=== PATIENT | female | born 1985 | race Caucasian/White ===

== ENCOUNTER → 2016-06-26 | Outpatient (CLI) | payer BC ==
[~2016-06-26] MED LIST: ETON1VAG VG
== END | disposition home or self-care (01) ==
LOC: STAR 13:45
PROVIDERS: ATTEND Obstetrics & Gynecology Female Pelvic Medicine and Reconstructive Surgery
DX: Z01.818 Encounter for other preprocedural examination (principal); R10.2 Pelvic and perineal pain
CPT/HCPCS: 36415; 84703; 85025

== ENCOUNTER 2016-07-05 08:26 | Day surgery (SDC) | payer BC, OTHER ==
[~2016-07-05] VITALS: Ht 167.6 cm; Wt 79.0 kg
[~2016-07-05 08:26] MED LIST changes: +BUPIVACAINE/PF-EPI 0.25% 1:200K ONE
[2016-07-05 09:20] VITALS: BP 127/81
[2016-07-05] MEDS ORDERED: LACTATED RINGERS 1,000 ML IV SCH ×2 (09:23→11:39)
[2016-07-05 09:35] LABS: HCG UR OBC PASS
[2016-07-05] MEDS ORDERED: FENTANYL PF 250 MCG/5ML ONE (09:44)
[2016-07-05] MEDS ORDERED: MIDAZOLAM 1 MG/ML, 2ML ONE (09:44)
[2016-07-05] MEDS ORDERED: METOCLOPRAMIDE 5 MG/ML, 2ML IV PRN (10:30)
[2016-07-05] MEDS ORDERED: OXYcodone 5 MG/5 ML ORAL.SOL UDC PO PRN (10:30)
[2016-07-05] MEDS ORDERED: FENTANYL PF 100 MCG/2ML IV PRN (10:30)
[2016-07-05] MEDS ORDERED: ONDANSETRON 2MG/ML, 2ML IVPush PRN ×2 (10:30→12:00)
[2016-07-05] MEDS ORDERED: PROMETHAZINE 25 MG/ML, 1ML IV PRN (10:30)
[2016-07-05] MEDS ORDERED: MEPERIDINE/PF 25MG/0.5ML IVPush PRN (10:30)
[2016-07-05] MEDS ORDERED: HYDROmorphone 1 MG/ML, 1ML IV PRN (10:30)
[2016-07-05] MEDS ORDERED: CEFAZOLIN 1,000 MG ONE (10:33)
[2016-07-05] MEDS ORDERED: PROPOFOL 10 MG/ML, 20ML ONE (10:33)
[2016-07-05] MEDS ORDERED: ROCURONIUM 10 MG/ML ONE (10:33)
[2016-07-05] MEDS ORDERED: GLYCOPYRROLATE 0.2MG/1ML ONE (10:33)
[2016-07-05] MEDS ORDERED: NEOSTIGMINE 1 MG/ML, 10ML ONE (10:33)
[2016-07-05] MEDS ORDERED: ONDANSETRON 2MG/ML, 2ML ONE (10:33)
[2016-07-05] MEDS ORDERED: DEXAMETHASONE 4 MG/ML, 1ML ONE (10:33)
[2016-07-05] MEDS ORDERED: FLUORESCEIN SODIUM 500 MG/5 ML ONE (11:08)
[2016-07-05] MEDS ORDERED: FENTANYL PF 100 MCG/2ML ONE (11:25)
[2016-07-05] MEDS ORDERED: SILVER NITRATE STICK TP ONE (11:29)
[2016-07-05] MEDS ORDERED: MEPERIDINE/PF 25MG/0.5ML ONE (11:59)
[2016-07-05] MEDS ORDERED: MORPHINE SULFATE 4 MG/ML, 1ML IVPush PRN (12:00)
[2016-07-05] MEDS ORDERED: HYDROcodone/APAP 5/325 TABLET PO PRN (12:00)
[2016-07-05] MEDS ORDERED: OXYcodone 5 MG/5 ML ORAL.SOL UDC ONE (12:28)
== END 2016-07-05 14:35 | disposition home or self-care (01) ==
LOC: OUT 08:26
PROVIDERS: ATTEND Obstetrics & Gynecology Female Pelvic Medicine and Reconstructive Surgery
DX: N80.3 Endometriosis of pelvic peritoneum (principal); R10.31 Right lower quadrant pain; Z72.89 Other problems related to lifestyle; Z88.0 Allergy status to penicillin; Z91.040 Latex allergy status
CPT/HCPCS: 44970; 58662; 81025; 88302; 88305; J0690; J1100; J2175; J2250; J2405; J2704; J2710; J3010; J7120; 88304; J3490